=== PATIENT | female | born 1940 | race Two or more races ===

== ENCOUNTER 2023-07-06 10:57 | Emergency (ER) | payer OTHER ==
[~2023-07-06] VITALS: Ht 165.1 cm; Wt 68.0 kg
[~2023-07-06 10:57] MED LIST: COZAAR100 MG PO; NEURONTIN600 MG PO; OSEL75CA PO; TUSSI PRES-B L120 M1 PO
[2023-07-06] MEDS ORDERED: CRESTOR10 MG (12:03)
[2023-07-06] MEDS ORDERED: LODOSYN25 MG (12:03)
[2023-07-06] MEDS ORDERED: PEPCID AC20 MG (12:03)
[2023-07-06] MEDS ORDERED: HORIZANT300 MG (12:04)
[2023-07-06 15:33] LABS: HEMATOCRIT 39.4 % (36.0-45.00); HEMOGLOBIN 13.1 g/dL (12.0-15.00); MEAN CELL VOLUME 84.8 fL (80.00-100.00); MEAN CORPUSCULAR HEMOGLOBIN 28.2 pg (27.00-32.0); MEAN CORPUSCULAR HGB CONC 33.3 g/dl (32.0-36.0); PLATELET COUNT 157 K/uL (150-450); RED BLOOD COUNT 4.65 M/uL (4.00-6.00); RED CELL DISTRIBUTION WIDTH 16.3 % (11.5-14.5); URINE APPEARANCE Cloudy; URINE BILIRRUBIN Negative (NEGATIVE); URINE BLOOD Negative; URINE COLOR Yellow; URINE GLUCOSE Negative (NEGATIVE); URINE LEUKOCYTE Small; URINE NITRATE Negative; URINE PROTEIN 30 (NEGATIVE)
[2023-07-06 15:37] LABS: URINE BACTERIA 1589.8 uL (0.0-1933); URINE EPITHELIAL CELLS 181.5 uL (0.0-38.8); URINE RBC 39.3 uL (0.0-20.8); URINE WBC 112.7 uL (0.0-23.2)
[2023-07-06 15:57] LABS: ALBUMIN 3.4 gm/dL (3.4-5.0); BILIRUBIN TOTAL 0.76 mg/dL (0.3-1.2); CREATININE SERUM 0.98 mg/dL (0.55-1.02); GFR 54.07; GLOBULINA 4.1 G/DL (2.4-3.5); POTASSIUM 4.52 mEq/L (3.5-5.1); TOTAL PROTEIN 7.5 gm/dL (6.4-8.2)
[2023-07-06 16:11] LABS: URINE CRYSTALS FEW /HPF; URINE MUCUS MODERATE
== END 2023-07-06 17:18 | disposition home or self-care (01) ==
LOC: ER 10:57
PROVIDERS: Emergency Medicine
DX: N39.0 Urinary tract infection, site not specified (principal); Z88.0 Allergy status to penicillin; I10 Essential (primary) hypertension; G20.A1 Parkinson's disease without dyskinesia, without mention of fluctuations